=== PATIENT | male | born 1935 | race Caucasian/White ===

== ENCOUNTER → 2016-11-27 | Outpatient (CLI) | payer MEDICARE, BC ==
[~2016-11-27] MED LIST: ALBU8.5H3 INH; AMLO2.5T30 PO; ASPI-611; ATOR10TA20 PO; AZIT250T6 PO; BENZ100C97 PO; DORZ10DR12 BOTH EYES; FLUT16SP13 NS; LORA-326 PO; METF-200 PO; METH4TAB3 PO; MULT-543 PO; POLY17PO3 PO; VIT1CAPS47
[2016-11-27 10:12] LABS: BASOPHILS % (AUTO) 0.6 % (0-2); EOSINOPHILS # (AUTO) 0.2 T/MM3 (0-0.5); HCT - HEMATOCRIT 43.4 % (41-53); IMMATURE GRANULOCYTE # (AUTO) 0.02 T/MM3 (0.00-0.03); IMMATURE GRANULOCYTE % (AUTO) 0.3 % (0.0-0.5); LYMPHOCYTES # (AUTO) 1.2 T/MM3 (1-4.8); LYMPHOCYTES % (AUTO) 18.5 % (23-45); MEAN CORPUSCULAR HGB 28.6 UUG (26-34); MEAN CORPUSCULAR HGB CONC(MCHC 32.3 GM/DL (31-37); MEAN CORPUSCULAR VOLUME 88.8 UM3 (80-100); MEAN PLATELET VOLUME 11.2 UM3 (9.4-12.4); MONOCYTES # (AUTO) 0.6 T/MM3 (0-0.8); MONOCYTES % (AUTO) 9.1 % (0-9.0); NEUTROPHILS #(AUTO)-ABSOLUTE 4.6 T/MM3 (1.8-7.7); NEUTROPHILS % (AUTO) 68.5 % (33-66); RED BLOOD COUNT 4.89 M/MM3 (4.50-5.90); WBC - WHITE BLOOD COUNT 6.7 T/MM3 (4.5-11.0)
[2016-11-27 10:13] LABS: BLOOD, URINE 3+ (NEGATIVE); COLOR,URINE YELLOW (YELLOW); LEUKOCYTE ESTERASE ,URINE TRACE (NEGATIVE); NITRITE,URINE POSITIVE (NEGATIVE); UROBILINOGEN,URINE 0.2 EU/DL (NORMAL)
[2016-11-27 10:23] LABS: ALBUMIN 3.9 G/DL (3.5-5.0); ALBUMIN/GLOBULIN RATIO 1.3 RATIO (1.1-2.2); ALKALINE PHOSPHATASE 74 U/L (38-126); ALT (SGPT) 26 U/L (21-72); ANION GAP 11 MEQ/L (5-15); AST (SGOT) 23 U/L (17-59); BUN/CREATININE RATIO 19 RATIO (6-26); C-REACTIVE PROTEIN 6.1 MG/L (0-9); CALCIUM 9.1 MG/DL (8.4-10.2); CHLORIDE 104 MEQ/L (98-107); CO2 - CARBON DIOXIDE 29 MEQ/L (22-30); CREATININE 0.7 MG/DL (0.8-1.5); GLOMERULAR FILTRATION RATE 108; GLUCOSE 128 MG/DL (75-110); POTASSIUM 4.4 MEQ/L (3.6-5); SODIUM 144 MEQ/L (134-144)
[2016-11-27 10:33] LABS: BACTERIA,URINE 4+ (NEGATIVE); RBC,URINE 30-50 /HPF (0-3); SQUAMOUS EPITHELIAL CELL,UR NONE SEEN; TRANSITIONAL EPI CELLS,URINE 0-1 /HPF
--- NOTE | 2016-11-27 11:14 | DI ---
Indication: ITS.REASON: R31.9 HEMATURIA, UNSPECIFIED PROCEDURE: CT RENAL W/O CONTRAST: Encounter: Initial Comparison: None Technique: Axial CT images were performed through the abdomen and pelvis without intravenous contrast. Coronal and sagittal two-dimensional reformats. Automated Exposure Control and Iterative Reconstruction dose reducing techniques were utilized. Findings: Calcified granulomas in the right middle and right lower lobe. Heart is enlarged. Moderate hiatal hernia. The unenhanced contours of the liver are grossly normal. Gallbladder is surgically absent. The spleen, pancreas and adrenal glands are within normal limits. Simple appearing right renal cyst. 3 mm nonobstructing lower pole right renal stone. Left kidney is normal. Previously repaired abdominal aortic aneurysm with an aortoiliac stent graft. Calcifications at the renal artery origins bilaterally. Fat and small bowel containing left ventral hernia without evidence of obstruction. Right lower quadrant ileal conduit. Prior cystectomy. Multiple surgical clips in the pelvis. No free fluid or adenopathy. Bone windows show the hardware in the right iliac bone and degenerative change in the spine. Impression: Right nephrolithiasis. No ureteral stones seen. .
== END ==
LOC: IMA 09:51
PROVIDERS: ATTEND Internal Medicine
DX: R31.9 Hematuria, unspecified (principal); N20.0 Calculus of kidney; N12 Tubulo-interstitial nephritis, not specified as acute or chronic
CPT/HCPCS: 36415; 80053; 81001; 83605; 85025; 86140; 87077; 87086; 87186

== ENCOUNTER 2017-10-25 03:04 | Inpatient (IN) ==
[2017-10-25] MEDS ORDERED: SALINE FLUSH 10ml SYRINGE IVF PRN (03:09)
[2017-10-25] MEDS ORDERED: ALBUTEROL/IPRATROPIUM 2.5mg-0.5mg/3ml NEB AEROSOL ONE (03:09)
[2017-10-25] MEDS ORDERED: NS 1,000 ML IV ONE (03:10)
[2017-10-25] MEDS ORDERED: ACETAMINOPHEN 500 MG TABLET PO ONE (03:12)
--- OUTSIDE RECORDS SUMMARY | 2017-10-25 03:18 | External Medical Summary ---
:1935 Author Organization eClinicalWorks Care Team Providers Name Role Phone Reji Guillory Provider Role Unavailable Allergies No Known Allergies Problems Problem Type Condition Code Onset Dates Condition Status Problem Gastro-esophageal reflux disease K21.9 Active without esophagitis Problem Essential (primary) hypertension I10 Active Problem Allergic rhinitis, unspecified J30.9 Active Medications Medication Code System Code Instructions Start Date End Date Status Dosage Omeprazole [facility] 28319-770 20 MG Orally Once 1 capsule 1-01 a day Results No Known Results Summary Purpose eClinicalWorks Submission
--- NOTE | 2017-10-25 03:31 | Emergency Department Report ---
General Adult HPI - General Stated complaint: weakness Time Seen by Provider: 10/25/17 03:08 Source: patient, EMS Mode of arrival: EMS Limitations: altered mental status - History of Present Illness HPI narrative: Patient has several day history of feeling "ill," and finally when he became severely weak tonight, his initiated EMS transport for evaluation of generalized weakness. Once the patient was in the ER, he was found to have fever , and confirmed decreased O2 saturations on room air by EMS and in the ER. O2 saturations were 89-90% on room air, patient is not sure if he has any shortness of breath. - Related Data Home Medications Medication Instructions Recorded Confirmed Fluticasone Propionate 2 spray NS DAILY #0 08/17/09 Loratadine (Claritin) 10 mg PO DAILY PRN #0 08/17/09 Multivitamins (Multiple Vitamin) 1 tab PO DAILY #0 08/17/09 Aspirin DAILY #0 12/18/10 Amlodipine Besylate [Norvasc] 2.5 mg PO DAILY #0 01/10/11 Metformin HCl 500 mg PO HS #0 12/07/12 Atorvastatin Calcium [Lipitor] 10 mg PO DAILY #0 09/12/13 Polyethylene Glycol 3350 [Miralax] 17 gm PO DAILY #0 pwd 01/07/14 Dorzolamide HCl 1 drop BOTH EYES BID #0 drop 11/20/14 Vit C/E/Zn/Coppr/Lutein/Zeaxan DAILY #0 11/20/14 [Preservision Areds 2 Softgel] Previous Rx's Medication Instructions Recorded Albuterol Sulfate (Albuterol 2 puff INH Q4-6H PRN #1 inhaler 11/20/14 Sulfate Hfa) Azithromycin 1 tab PO DAILY 5 Days #0 tab 11/20/14 Benzonatate [Tessalon Perle] 100 mg PO Q8H #20 cap 11/20/14 methylPREDNISolone [Medrol] 4 mg PO DIRECTED #1 11/20/14 Allergies Allergy/AdvReac Type Severity Reaction Status Date / Time lisinopril Allergy Unknown AIRWAY Verified 10/25/17 03:26 OBSTRUCTION naproxen sodium AdvReac Severe BLOODY Uncoded 10/25/17 03:26 STOOLS hydrocodone bit AdvReac Intermediate NEUROLOGICAL Uncoded 10/25/17 03:26 CHANGES Review of Systems All systems: reviewed and negative except as stated PFSH Colon cancer, hypertension, hypercholesterolemia allergies aortic aneurysm GERD BPH Surgical History: Partial colon resection with colostomy. Bladder resection with ileal urostomy. appendix,. gallbladder,. hernia,. colonoscopy,. EGD,. aneurysm repair. prostatectomy. knee Physical Exam - Limitations Limitations: altered mental status - General General appearance: alert, other (patient appears significantly hard of hearing , but also moderately confused) - Normal Exams: Head:: Normocephalic without trauma Eyes:: Pupils are PERRLA w/ EOMI, No scleral icterus, irritation, or foreign bodies noted ENMT:: No facial trauma, nasal exudates, pharyngeal erythema, or exudates are noted Neck:: Full range of motion, without adenopathy, JVD, bruits or thyromegaly Cardiovascular:: Regular rate and rhythm, without murmur or gallop, Pulses 2+ all extremities, capillary refill, <2 seconds all extremities Abdomen:: Bowel sounds positive, soft, non-tender, non-distended, no hepatosplenomegaly, masses or bruits noted Lymphatic:: No lymphadenopathy, or lymphedema noted Musculoskeletal:: No tenderness, or deformity noted, good range of motion, all extremities Integumentary:: No rashes, hives, or bruising noted, hair and nails, without abnormality Neurological:: Patient is alert, and oriented, cranial nerves, motor/sensory/ cerebellar, exams w/o gross deficits, to observation Psychiatric:: Patient exhibits, appropriate attention, emotion and affect - Chest Chest inspection: Present: normal inspection, symmetric chest wall rise. Absent : tenderness - Respiratory Respiratory exam: Present: wheezes. Absent: normal lung sounds bilaterally ( course rhonchi and mild wheezes bilaterally, mild), respiratory distress, accessory muscle use, prolonged expiratory phase Course Vital Signs Temperature 101 F H 10/25/17 03:05 Pulse Rate 89 10/25/17 03:05 Respiratory Rate 24 10/25/17 03:05 Blood Pressure 168/79 H 10/25/17 03:05 Pulse Oximetry 89 L 10/25/17 03:05 Temperature 101 F H 10/25/17 03:05 Pulse Rate 80 10/25/17 04:16 Respiratory Rate 20 10/25/17 04:16 Blood Pressure 146/88 H 10/25/17 04:16 Pulse Oximetry 97 10/25/17 04:16 Medical Decision Making - MDM Narrative Medical decision making narrative: Patient is maintained on 2 L nasal cannula with good oxygenation He is given 1 L normal saline bolus and DuoNeb 1 CBC - n CMP- n Lactate - n Influenza negative UA - CXR - no focal consolidations are seen, mild unchanged infiltrates from prior exams are seen. Age-appropriate change. Does not appear to be chronic lung disease. Patient is feeling somewhat better after normal saline bolus and DuoNeb 1, however we are unable to wean the patient off his oxygen without recurrence of his hypoxemia down to 89% on room air. Patient also persists with profound weakness, and his is unable to care for him in this state at home. - Lab Data Result diagrams: 10/25/17 03:21 10/25/17 03:21 Lab Results 10/25/17 10/25/17 10/25/17 Range/Units 03:21 03:21 03:30 WBC 10.6 (4.5-11.0) T/MM3 RBC 4.77 (4.50-5.90) M/MM3 Hgb 14.0 (13.5-17.5) GM/DL Hct 42.5 (41-53) % MCV 89.1 (80-100) UM3 MCH 29.4 (26-34) UUG MCHC 32.9 (31-37) GM/DL RDW Std Deviation 44.6 (36.9-50.2) FL Plt Count 147 (130-400) T/MM3 MPV 11.4 (9.4-12.4) UM3 Immature Gran % (Auto) Not performed Neut % (Auto) Not performed Lymph % (Auto) Not performed Barren % (Auto) Not performed Eos % (Auto) Not performed Baso % (Auto) Not performed Neut # (Auto) Not performed Lymph # (Auto) Not performed Barren # (Auto) Not performed Eos # (Auto) Not performed Baso # (Auto) Not performed Abs Immat Gran (auto) Not performed Neutrophils % (Manual) 89.0 H (33-66) % Band Neutrophils % 4.0 (0-6) % Lymphocytes % (Manual) 4.0 L (23-45) % Monocytes % (Manual) 3.0 (0-9.0) % Neutrophils # (Manual) 9.4 H (1.8-7.7) T/MM3 Band Neutrophils # 0.4 T/MM3 Lymphocytes # (Manual) 0.4 L (1-4.8) T/MM3 Monocytes # (Manual) 0.3 (0-0.8) T/MM3 RBC Morph Comment Normal Turbidity < 20 (0-20) Sodium 142 (134-144) MEQ/L Potassium 3.7 (3.6-5) MEQ/L Chloride 104 (98-107) MEQ/L Carbon Dioxide 25 (22-30) MEQ/L Anion Gap 13 (5-15) MEQ/L BUN 17.0 (9-20) MG/DL Creatinine 0.7 L (0.8-1.5) MG/DL GFR Calculation 107 BUN/Creatinine Ratio 24 (6-26) RATIO Glucose 213 H (75-110) MG/DL Calculated Osmolality 281 H (261-280) MOSM/KG Calcium 8.7 (8.4-10.2) MG/DL Total Bilirubin 0.30 (0.20-1.30) MG/DL Conjugated Bilirubin 0.00 (0.00-0.30) MG/DL Unconjugated Bilirubin 0.00 (0.00-1.1) MG/DL Icterus Index < 2 (0-7) AST 26 (17-59) U/L ALT 31 (21-72) U/L Alkaline Phosphatase 87 (38-126) U/L Total Protein 7.3 (6.3-8.2) G/DL Albumin 4.0 (3.5-5.0) G/DL Globulin 3.3 (2.4-3.6) G/DL Albumin/Globulin Ratio 1.2 (1.1-2.2) RATIO Plasma Lactate 1.6 (0.6-2.2) MMOL/L Specimen Hemolysis < 15 (0-25) Influenza Type A (PCR) Negative (Negative) Influenza Type B (PCR) Negative (Negative) Disposition Clinical Impression: Febrile illness, Hypoxemia Disposition: 02 To [facility] Acute Care Condition: Improved Prescriptions: No Action Fluticasone Propionate 2 spray NS DAILY #0 Multivitamins (Multiple Vitamin) 1 tab PO DAILY #0 Aspirin DAILY #0 Metformin HCl 500 mg PO HS #0 Atorvastatin Calcium [Lipitor] 10 mg PO DAILY #0 Polyethylene Glycol 3350 [Miralax] 17 gm PO DAILY #0 pwd Vit C/E/Zn/Coppr/Lutein/Zeaxan [Preservision Areds 2 Softgel] DAILY #0 Albuterol Sulfate (Albuterol Sulfate Hfa) 2 puff INH Q4-6H PRN #1 inhaler PRN Reason: COUGH Loratadine (Claritin) 10 mg PO DAILY PRN #0 PRN Reason: PRN ORDERS Amlodipine Besylate [Norvasc] 2.5 mg PO DAILY #0 Dorzolamide HCl 1 drop BOTH EYES BID #0 drop Azithromycin 1 tab PO DAILY 5 Days #0 tab methylPREDNISolone [Medrol] 4 mg PO DIRECTED #1 Benzonatate [Tessalon Perle] 100 mg PO Q8H #20 cap Referrals: Didier Powell Jr., MD [Physician] - Reji Guillory DO [Family Provider] - Roosevelt Sanders MD [Physician] - - Seen By: physician
[2017-10-25] MEDS ORDERED: AZITHROMYCIN IV 500 MG in NS 250ml 250 ML IV ONE (04:36)
[2017-10-25] MEDS ORDERED: CEFTRIAXONE (ER USE ONLY) 1 GM in NS 100 ML IV ONE (04:36)
[2017-10-25] MEDS ORDERED: ONDANSETRON 4 MG/2 ML INJECTION IVP PRN (04:49)
[2017-10-25] MEDS ORDERED: CEFTRIAXONE (ER USE ONLY) 1 GM in NS 100 ML IV SCH (04:49)
[2017-10-25] MEDS ORDERED: HYDROCODONE/APAP 5mg/325mg TABLET PO PRN (04:49)
[2017-10-25] MEDS ORDERED: DOCUSATE SODIUM 100 MG CAPSULE PO PRN (04:49)
[2017-10-25] MEDS ORDERED: MORPHINE SULFATE 4mg INJECTION IVP PRN (04:49)
[2017-10-25] MEDS ORDERED: ACETAMINOPHEN 325 MG TABLET PO PRN (04:49)
[2017-10-25 05:39] VITALS: BMI 26.0
[2017-10-25] MEDS: NS 1,000 ML IV SCH ×2 (05:58→17:57)
[2017-10-25] MEDS: ENOXAPARIN 40 MG/0.4 ML INJECTION SQ SCH (06:09)
[2017-10-25] MEDS: AZITHROMYCIN IV 500 MG in NS 250ml 250 ML IV SCH (06:11)
--- NOTE | 2017-10-25 06:25 | History & Physical Report ---
History of Present Illness Date: 10/25/17 Chief complaint: weakness HPI: This is a 82 y/o male with a previous history of colon and bladder cancer with a urostomy and colostomy. The pateint has a hsitory of recurrent UTI. The patient has been experiencing resp symptoms for the past week. with a cough. He has had low grade fevers with chills and sweats. Tonight the patient's weakness worsened and he was brought to the ED for evaluation. The patient had a 101 temperature. CXR without obvious infiltrate. mild hypoxia. At this time he is to be admitted for further managment of his underlying infectious process. No headaches, no sore throat, mild congestion, no neck pain, no chest pain. cough ? productive. no abdomen pain, decreased po intake past 2 days. no emesis. OUtput from ostomy no change, no blood. no focal motor weakness. Patient is very [place] and as such information obtained from who is a very reliable source. Review of Systems All systems PM: 10-point ROS was reviewed, no additional remarkable complaints except Past Medical History Patient Stated Medical History Other HEENT Yes: SINUS SURGERY Hypertension Yes Diabetes Mellitus Type 2 Yes Other GI Yes: COLON CANCER Hx Urinary Tract Infection Yes Surgical History: Partial colon resection with colostomy. Bladder resection with ileal urostomy. appendix,. gallbladder,. hernia,. colonoscopy,. EGD,. aneurysm repair. prostatectomy. knee Family History Updates: as stated above. non contribuatory at this age - Social History Smoking status: Never smoker Medications Home Medications Medication Instructions Recorded Confirmed Type Fluticasone Propionate 2 spray NS DAILY #0 08/17/09 10/25/17 History Loratadine (Claritin) 10 mg PO DAILY PRN #0 08/17/09 10/25/17 History Multivitamins (Multiple Vitamin) 1 tab PO DAILY #0 08/17/09 10/25/17 History Aspirin 81 mg PO DAILY #0 12/18/10 10/25/17 History Amlodipine Besylate [Norvasc] 2.5 mg PO DAILY #0 01/10/11 10/25/17 History Metformin HCl 500 mg PO HS #0 12/07/12 10/25/17 History Atorvastatin Calcium [Lipitor] 10 mg PO DAILY #0 09/12/13 10/25/17 History Polyethylene Glycol 3350 [Miralax] 17 gm PO DAILY #0 pwd 05/08/14 02/23/18 History Dorzolamide HCl 1 drop BOTH EYES BID #0 drop 11/20/14 10/25/17 History Vit C/E/Zn/Coppr/Lutein/Zeaxan 1 cap DAILY #0 11/20/14 10/25/17 History [Preservision Areds 2 Softgel] Losartan Potassium 25 mg PO DAILY 10/25/17 10/25/17 History Omeprazole 20 mg BID 10/25/17 10/25/17 History Allergies Allergy/AdvReac Type Severity Reaction Status Date / Time lisinopril Allergy Unknown AIRWAY Verified 10/25/17 05:54 OBSTRUCTION naproxen sodium AdvReac Severe BLOODY Uncoded 10/25/17 05:54 STOOLS hydrocodone bit AdvReac Intermediate NEUROLOGICAL Uncoded 10/25/17 05:54 CHANGES Exam Vital Signs: Temperature 97.3 F 10/25/17 05:53 Pulse Rate 69 10/25/17 05:53 Respiratory Rate 20 10/25/17 05:53 Blood Pressure 117/65 10/25/17 05:53 Pulse Oximetry 93 10/25/17 05:53 Height/Weight/BMI: Height 1.83 m Weight 87.1 kg Body Mass Index 26.0 - Constitutional Present: mild distress, average body habitus, cooperative - Routine HEENT Exam Head: Present: normocephalic, atraumatic Eye: Present: EOMI, conjunctivae pink. Absent: scleral injection ENT: Present: mucous membranes dry - Routine Neck Exam Present: supple - Routine Respiratory Exam Present: decreased breath sounds, CTA bilaterally - Routine Cardiovascular Exam Present: RRR Comments: 3 to 4 / 6 JESSICA - Routine Abdominal Exam Present: soft, normoactive bowel sounds, non distended, ostomy - Routine Extremities Exam Present: no edema, non tender, full ROM, pulses intact - Routine Back/Spine/Pelvis Exam Back/Spine: Present: full ROM - Routine Skin Exam Present: intact, dry - Routine Neurological Exam Present: alert, oriented X3, normal tone. Absent: motor deficit, altered mental status - Routine Psychiatric Exam Present: normal affect Results - Labs CBC & Chem 7: 10/25/17 03:21 10/25/17 03:21 Labs: labs reviewed. LA normal. CXR without acute infiltrate UA pending but visually looked not normal. Assessment and Plan (1) Sepsis Current visit: Yes Status: Acute (2) UTI (urinary tract infection) Current visit: Yes Status: Acute (3) Upper respiratory infection Current visit: Yes Status: Acute (4) Hypoxemia Current visit: Yes Status: Acute (5) Hard of hearing Current visit: Yes Status: Acute (6) DM type 2 (diabetes mellitus, type 2) Current visit: Yes Status: Acute (7) Influenza A Current visit: Yes Status: Acute Assessment and Plan: 1. upper respiratory infection acute POA: patient is febrile, progressive weakness. CXR no consistent with infiltrate. could be dry and not clearly demonstrated. influenza a and b neg. This patient acts like influenza. Will check resp panel which will check pcr influenza. will cover with rocephin/ zithromax to start with. reassess after initial treatment 2. UTI acute POA: no way to confirm if truly acute vs chronic. Rocephin to start with. cx will be sent 3. sepsis acute POA: will tx with ivf and repeat markers in am 4. DM2 chronic POA: correctional plan 5. HTN chronic POA: hold antihypertensive meds to start with, adjust as indicated 6. DVT ppx; SCD, lovenox 7. S/p colon and bladder cancer with urostomy and colostomy. CT recently demonstrated no recurrence. to be aware of CATHERINE Assessment Sepsis syndrome (SIRS: Temp 101, RR 24, Hypoxia) - source urine/Influenza Influenza type A UTI Hypoxia Anorexia secondary to acute illness Acute weakness Type II DM HTN HDL Seasonal allergies GERD OA Hx Colon and bladder CA DVT Prophylaxis: SCD's, Lovenox Resuscitation Status: Full Code - Time spent with patient Time with patient PN: 30 minutes - Physician Narrative Physician: Star Finnegan MD Narrative: Date: 10/25/17 Time: 1120 Have independently interviewed and examined pt. Chart reviewed. Reviewed above note and concur. CC: Weakness, increasing cough/congestion. HPI: 82 y/o male presents to [facility] ED via EMS secondary to increasing weakness. Started with cough and congestion on 10/23. Cough productive of thick sputum. Hard to sleep and night due to increasing cough and phlegm. More SOA and congested. Appetite decreasing. Evening of 10/24, not able to finish his dinner secondary to nausea-tried to have emesis, but couldn't. Having F/C/Sweats. Progressively more weak-not able to get up so EMS activated and pt taken to ED. Temp elevated to 101. Respiratory rate rapid. UA concerning for UTI. Influenza A positive. Hypoxic on RA - 89% saturation. PMHx: Type II DM, HTN, HDL, OA, GERD, Seasonal Allergies, Anxiety, Hx Colon and bladder Ca, Macular degeneration PsxHx: Vandana fundoplication, Partial colon resection with colostomy, Bladder resection with ileal urostomy, Appy, Lesli, Hernia Sx, Prostatectomy, Power Port All: lisinopril, Naproxen, Hydrocodone. MEDS: see MAR SHx: to of 60 years, lives independently. Quit smoke in 60's. Kahlil PCP. FHx: Father-CHF, stroke. Mother-DM. 2 sisters had CA Brother with HTN ROS: as in HPI. 10 point ROS discusses with pt and neg except for: increased sinus congestion, Neck and arm pain for past months. EXAM GEN: WDWNWM A&O Looks tired and weak. HEENT: NC/AT PERRLA EOMI MMM NECK: supple, midline, no tracheal deviation LUNGS: Decreased breath sounds bilaterally. Upper airway noises. Frequent cough. CV: regular rate and rhythm AB: soft nt/nd +BS EXT: no C/C/E. Radial pulses intact. SKIN: warm and moist. No rashes Neuro: CN II-XII intact. No focal motor deficits PSYCH: awake alert appropriate. Thoughts linear MS: normal muscle mass and tone of upper and lower ext. Assessment Sepsis syndrome (SIRS: Temp 101, RR 24, Hypoxia) - source urine/Influenza Influenza type A UTI Hypoxia Anorexia secondary to acute illness Acute weakness Type II DM HTN HDL Seasonal allergies GERD OA Hx Colon and bladder CA Plan Place patient in inpatient admission at [facility] for treatment of sepsis syndrome secondary to UTI and influenza. Anticipate greater than 2 midnights of care needed. Rocephin and azithromycin to cover urinary/pulmonary pathogens. Tamiflu initiated for influenza, but pt and family declining secondary to potential side effects. Will discontinue. IVF for hydration. Supplemental O2 to maintain saturations. Mucinex DM and Acapella to help decrease secretion. Will hold antihypertensive initially to decrease risk for hypotension due to sepsis. Monitor blood counts and BMP due to sepsis and medication use. Will need PT/OT to help improve functional status once acute symptoms defervesce. SCD for DVT prevention. Discussed code status with patient and his . Currently wishes full code, but are in process of thinking about DNR. Care to return to Dr Guillory at time of discharge from [facility]. Hospital Course Summary Disclaimer: The visit summary below is not to be considered part of the above Progress Note. Hospital Course: 10/25/[address] patient in inpatient admission at [facility] for treatment of sepsis syndrome secondary to UTI and influenza. Anticipate greater than 2 midnights of care needed. Rocephin and azithromycin to cover urinary/pulmonary pathogens. Tamiflu initiated for influenza, but pt and family declining secondary to potential side effects. Will discontinue. IVF for hydration. Supplemental O2 to maintain saturations. Mucinex DM and Acapella to help decrease secretion. Will hold antihypertensive initially to decrease risk for hypotension due to sepsis. Monitor blood counts and BMP due to sepsis and medication use. Will need PT/OT to help improve functional status once acute symptoms defervesce. SCD for DVT prevention. Discussed code status with patient and his . Currently wishes full code, but are in process of thinking about DNR. Care to return to Dr Guillory at time of discharge from [facility].
--- NOTE | 2017-10-25 08:03 | XRay Report ---
INDICATION: cough, hypoxemia PROCEDURE: CHEST 2-VIEWS UPRIGHT (PA & LAT) Encounter: Initial COMPARISON: Chest CT dated October 03, 2017. FINDINGS: The lungs are clear without evidence of focal abnormal airspace opacity. There is no pleural effusion or pneumothorax. Right IJ port The heart size, mediastinal contours and pulmonary vascularity are stable. IMPRESSION: No acute cardiopulmonary disease. .
[2017-10-25] MEDS ORDERED: LORATADINE 10 MG TABLET PO PRN (11:47)
[2017-10-25] MEDS: SALINE 0.65% NASAL SPRAY 44 ML BOTTLE EA NOSTRIL SCH ×3 (13:58→20:47)
[2017-10-25] MEDS: GUAIFENESIN/D-METHORPHAN 600mg/30mg TABLET PO SCH ×2 (14:01→20:46)
[2017-10-25] MEDS: OMEPRAZOLE 20 MG CAPSULE PO SCH (16:26)
[2017-10-25] MEDS: DORZOLAMIDE 2% EYE DROPS 10ml RIGHT EYE SCH (20:47)
[2017-10-26] MEDS: NS 1,000 ML IV SCH ×3 (04:12→18:31)
[2017-10-26] MEDS: AZITHROMYCIN IV 500 MG in NS 250ml 250 ML IV SCH (05:24)
[2017-10-26] MEDS: ENOXAPARIN 40 MG/0.4 ML INJECTION SQ SCH (05:25)
[2017-10-26] MEDS: OMEPRAZOLE 20 MG CAPSULE PO SCH ×2 (05:31→17:38)
[2017-10-26] MEDS: NS IV SCH (06:59)
[2017-10-26] MEDS: CEFTRIAXONE IV SCH (06:59)
[2017-10-26] MEDS: SALINE 0.65% NASAL SPRAY 44 ML BOTTLE EA NOSTRIL SCH ×4 (09:57→20:38)
[2017-10-26] MEDS: FLUTICASONE NASAL SPRAY 50mcg EA NOSTRIL SCH (09:58)
[2017-10-26] MEDS: POLYETHYL GLYCOL 3350 17gm PACKET PO SCH (09:58)
[2017-10-26] MEDS: ATORVASTATIN 10 MG TABLET PO SCH (09:58)
[2017-10-26] MEDS: GUAIFENESIN/D-METHORPHAN 600mg/30mg TABLET PO SCH ×2 (09:58→20:38)
[2017-10-26] MEDS: ASPIRIN 81 MG CHEWABLE TABLET PO SCH (09:58)
[2017-10-26] MEDS: DORZOLAMIDE 2% EYE DROPS 10ml RIGHT EYE SCH ×2 (09:59→20:37)
--- NOTE | 2017-10-26 13:26 | Progress Note ---
- Date 10/26/17 Subjective: F/U: Sepsis syndrome, Influenza type A, UTI, Hypoxia Doing fair. Still very weak and tired. No appetite-not feeling hungry or wanting to eat. Not having nausea or ab pain. Denies feeling bloated to ab. [place] like needed to pass stool, but not able. Hiccups are very bothersome. Breathing about the same-notes cough but not producing sputum. Chest wall sore with cough. No chest pressure or palpitations. Objective Vital signs: Temperature 96.5 F L 10/26/17 07:36 Pulse Rate 122 H 10/26/17 08:00 Respiratory Rate 18 10/26/17 07:36 Blood Pressure 155/74 H 10/26/17 07:36 Pulse Oximetry 92 10/26/17 07:36 Height/Weight/BMI: Height 1.83 m Weight 87.2 kg Body Mass Index 26.0 - Constitutional Present: well nourished, well developed, average body habitus, cooperative - Routine HEENT Exam Head: Present: normocephalic, atraumatic Eye: Present: EOMI, PERRL ENT: Present: mucous membranes moist - Routine Respiratory Exam Present: decreased breath sounds, distant breath sounds, diminished air movement. Absent: respiratory distress - Routine Cardiovascular Exam Present: irregular rhythm - Routine Abdominal Exam Present: soft, non distended, non tender. Absent: normoactive bowel sounds ( Decreased) - Routine Extremities Exam Present: no edema, pulses intact. Absent: cyanosis, clubbing - Routine Musculoskeletal Exam Musculoskeletal: Present: no clubbing or cyanosis - Routine Skin Exam Present: dry, warm - Routine Neurological Exam Present: alert, oriented X3, CN II-XII intact, moving all extremities, vision grossly intact, hearing grossly intact, normal speech. Absent: motor deficit, altered mental status - Routine Psychiatric Exam Present: normal affect, normal thought process, cooperative Results - Labs CBC & Chem 7: 10/26/17 05:52 10/26/17 05:52 Assessment and Plan (1) Sepsis Current visit: Yes Status: Acute (2) UTI (urinary tract infection) Current visit: Yes Status: Acute (3) Upper respiratory infection Current visit: Yes Status: Acute (4) Hypoxemia Current visit: Yes Status: Acute (5) Hard of hearing Current visit: Yes Status: Acute (6) DM type 2 (diabetes mellitus, type 2) Current visit: Yes Status: Acute (7) Influenza A Current visit: Yes Status: Acute Assessment and Plan: Assessment Sepsis syndrome (SIRS: Temp 101, RR 24, Hypoxia) - source urine/Influenza Influenza type A UTI - Ecoli Hypoxia Anorexia secondary to acute illness Acute weakness Hiccups Hypokalemia (Not POA) Type II DM HTN HDL Seasonal allergies GERD OA Hx Colon and bladder CA Plan Continue with Rocephin for urinary coverage; E coli growing - sensitivities pending. Can discontinue Azithromycin. Decreased IVF to 75cc/hr - oral drive still diminish. Sugars stable; will continue to hold metformin due to decreased oral drive. Give 20mEq potassium orally due to hypokalemia. Thorazine prn hiccups Tele showing tachycardiac and cardiac irregularity. Check EKG. Will start Metoprolol succinate 25mg BIDWM. BP increasing - can restart Norvasc and losartan. PT/OT working with patient to help improve strength. Will recheck BMP in am due to hypokalemia and medication use. Will recheck CBC in am due to resolving sepsis syndrome. Case discussed with CM and family. Time spent with patient care 25 minutes. DVT Prophylaxis: SCD's, Lovenox Resuscitation Status: Full Code - Time spent with patient Time with patient PN: 25 minutes - Physician Narrative Physician: Star Finnegan MD Narrative: Date: 10/26/17 Time: 1323 Hospital Course Summary Disclaimer: The visit summary below is not to be considered part of the above Progress Note. Hospital Course: 10/25/[address] [place] [facility] of [place] syndrome secondary to UTI and influenza. Anticipate greater than 2 midnights of care needed. Rocephin and azithromycin to cover urinary/pulmonary pathogens. Tamiflu initiated for influenza, but pt and family declining secondary to potential side effects. Will discontinue. IVF for hydration - NS at 100cc/hr. Supplemental O2 to maintain saturations. Mucinex DM and Acapella to help decrease secretion. Will hold antihypertensive initially to decrease risk for hypotension due to sepsis. Monitor blood counts and BMP due to sepsis and medication use. Will need PT/OT to help improve functional status once acute symptoms defervesce. SCD and Lovenox for DVT prevention. Discussed code status with patient and his . Currently wishes full code, but are in process of thinking about DNR. Care to return to Dr Guillory at time of discharge from [facility] 10/26/17 Continue with Rocephin for urinary coverage; E coli growing - sensitivities pending. Can discontinue Azithromycin. Decreased IVF to 75cc/hr - oral drive still diminish. Sugars stable; will continue to hold metformin due to decreased oral drive. Give 20mEq potassium orally due to hypokalemia. Thorazine prn hiccups Tele showing tachycardiac and cardiac irregularity. Check EKG. Will start Metoprolol succinate 25mg BIDWM. BP increasing - can restart Norvasc and losartan. PT/OT working with patient to help improve strength.
[2017-10-26] MEDS: ChlorproMAZINE INJ 25 MG in NS 50 ML IV PRN (14:13)
[2017-10-27] MEDS: CEFTRIAXONE IV SCH (05:36)
[2017-10-27] MEDS: OMEPRAZOLE 20 MG CAPSULE PO SCH ×2 (05:36→18:04)
[2017-10-27] MEDS: ENOXAPARIN 40 MG/0.4 ML INJECTION SQ SCH (05:36)
[2017-10-27] MEDS: NS IV SCH (05:36)
[2017-10-27] MEDS: NS 1,000 ML IV SCH ×3 (05:36→21:38)
[2017-10-27] MEDS: SALINE 0.65% NASAL SPRAY 44 ML BOTTLE EA NOSTRIL SCH ×4 (09:06→22:54)
[2017-10-27] MEDS: FLUTICASONE NASAL SPRAY 50mcg EA NOSTRIL SCH (09:06)
[2017-10-27] MEDS: POLYETHYL GLYCOL 3350 17gm PACKET PO SCH (09:07)
[2017-10-27] MEDS: ATORVASTATIN 10 MG TABLET PO SCH (09:07)
[2017-10-27] MEDS: LOSARTAN 50 MG TABLET PO SCH (09:07)
[2017-10-27] MEDS: AMLODIPINE 2.5 MG TABLET PO SCH (09:07)
[2017-10-27] MEDS: GUAIFENESIN/D-METHORPHAN 600mg/30mg TABLET PO SCH ×2 (09:07→20:19)
[2017-10-27] MEDS: ASPIRIN 81 MG CHEWABLE TABLET PO SCH (09:07)
[2017-10-27] MEDS: DORZOLAMIDE 2% EYE DROPS 10ml RIGHT EYE SCH ×2 (09:08→20:20)
[2017-10-27] MEDS ORDERED: FALL RISK - PHARMACY CONSULT XX ONE (09:32)
[2017-10-27] MEDS: ChlorproMAZINE INJ 25 MG in NS 50 ML IV PRN ×2 (10:23→18:53)
--- NOTE | 2017-10-27 13:34 | Progress Note ---
- Date 10/27/17 Subjective: Deangelo is seen today in follow up. He is up in the chair watching basketball. He states that overall he is feeling good and improved. He is breathing on room air without distress. Telemetry revels that he converted back to sinus rhythm this morning. He denies having pain or feeling short of breath. States he is "ready to go home and get some freedom". Objective Vital signs: Temperature 97.8 F 10/27/17 07:54 Pulse Rate 74 10/27/17 08:38 Respiratory Rate 16 10/27/17 07:54 Blood Pressure 139/80 10/27/17 07:54 Pulse Oximetry 94 10/27/17 07:54 Rhythm: Normal Sinus Rhythm Height/Weight/BMI: Height 1.83 m Weight 86.9 kg Body Mass Index 26.0 - Constitutional Present: no acute distress, well nourished, well developed - Routine HEENT Exam Eye: Present: EOMI ENT: Present: mucous membranes moist, dentition normal - Routine Respiratory Exam Present: CTA bilaterally. Absent: wheezes - Routine Cardiovascular Exam Present: RRR, S1, S2. Absent: murmur - Routine Abdominal Exam Present: soft, normoactive bowel sounds, non distended. Absent: tenderness - Routine Extremities Exam Present: full ROM, normal capillary refill - Routine Skin Exam Present: dry, warm - Routine Neurological Exam Present: alert, oriented X3, CN II-XII intact, moving all extremities - Routine Lymphatic Exam Lymphatic: Absent: adenopathy - Routine Psychiatric Exam Present: normal affect, cooperative Results - Labs CBC & Chem 7: 10/27/17 03:54 10/27/17 03:54 Assessment and Plan (1) Sepsis Current visit: Yes Status: Acute (2) UTI (urinary tract infection) Current visit: Yes Status: Acute (3) Upper respiratory infection Current visit: Yes Status: Acute (4) Influenza A Current visit: Yes Status: Acute (5) Hypoxemia Current visit: Yes Status: Acute (6) Hard of hearing Current visit: Yes Status: Acute (7) DM type 2 (diabetes mellitus, type 2) Current visit: Yes Status: Acute Assessment and Plan: Assessment Sepsis syndrome (SIRS: Temp 101, RR 24, Hypoxia) - source urine/Influenza Influenza type A UTI - Ecoli Hypoxia Anorexia secondary to acute illness Acute weakness Hiccups Hypokalemia (Not POA) Type II DM HTN HDL Seasonal allergies GERD OA Hx Colon and bladder CA Plan Continue with Rocephin for urinary coverage; E coli growing - sensitive to Rocephin. Overall feeling better and is currently on room air. Continue to Monitor blood sugars. As oral drive improves can resume home metformin. Mild hypokalemia- oral potassium supplementation. Will consult for PT/OT for tomorrow to evaluate strengthening. Case discussed with attending, Dr Finnegan. DVT Prophylaxis: SCD's Resuscitation Status: Full Code - Time spent with patient Time with patient PN: 25 minutes - Physician Narrative Physician: Star Finnegan MD Narrative: Date: 10/27/17 Time: 1412 Have independently interviewed and examined pt. Chart reviewed. Case discussed with my SECONDARY SCHOOL TEACHER LIBRARIAN. Care plan developed with my supervision; agree with above. Feeling better. Appetite increasing-eating better. No nausea or ab pain. Breathing okay-some cough but not mobilizing sputum. Strength making improvement. No chest pressure or pain. Lungs: decreased, no distress CV: regular AB: soft nt/nd MSE: awake alert appropriate Plan: Continue with Rocephin-Ecoli sensitive. Will stop IVF and monitor patient response without fluid support. Encourage ambulation. Getting closer to discharge - will need to see how patient does with therapy to help determine if strong enough for home or needing skilled at discharge. Hospital Course Summary Disclaimer: The visit summary below is not to be considered part of the above Progress Note. Hospital Course: 10/25/[address] patient [place] [facility] of sepsis syndrome secondary to UTI and influenza. Anticipate greater than 2 midnights of care needed. Rocephin and azithromycin to cover urinary/pulmonary pathogens. Tamiflu initiated for influenza, but pt and family declining secondary to potential side effects. Will discontinue. IVF for hydration - NS at 100cc/hr. Supplemental O2 to maintain saturations. Mucinex DM and Acapella to help decrease secretion. Will hold antihypertensive initially to decrease risk for hypotension due to sepsis. Monitor blood counts and BMP due to sepsis and medication use. Will need PT/OT to help improve functional status once acute symptoms defervesce. SCD and Lovenox for DVT prevention. Discussed code status with patient and his . Currently wishes full code, but are in process of thinking about DNR. Care to return to Dr Nedich at time of discharge from [facility]. 10/26/17 Continue with Rocephin for urinary coverage; E coli growing - sensitivities pending. Can discontinue Azithromycin. Decreased IVF to 75cc/hr - oral drive still diminish. Sugars stable; will continue to hold metformin due to decreased oral drive. Give 20mEq potassium orally due to hypokalemia. Thorazine prn hiccups Tele showing tachycardiac and cardiac irregularity. Check EKG. Will start Metoprolol succinate 25mg BIDWM. BP increasing - can restart Norvasc and losartan. PT/OT working with patient to help improve strength. 10/27/17 Continue with Rocephin for urinary coverage; E coli growing - sensitive to Rocephin. Overall feeling better and is currently on room air. Appetite increasing. Will stop IVF and monitor his response off of fluid support. Continue to Monitor blood sugars. As oral drive improves can resume home metformin. Mild hypokalemia- oral potassium supplementation. Encourage therapy and activities to help strength and functional status. Possible need for skilled care at discharge.
[2017-10-27 23:31] VITALS: RESP 18
[2017-10-28] MEDS: OMEPRAZOLE 20 MG CAPSULE PO SCH (05:56)
[2017-10-28] MEDS: ENOXAPARIN 40 MG/0.4 ML INJECTION SQ SCH (05:56)
[2017-10-28] MEDS: CEFTRIAXONE IV SCH (05:57)
[2017-10-28] MEDS: NS IV SCH (05:57)
[2017-10-28] MEDS: NS 1,000 ML IV SCH (06:30)
[2017-10-28 08:00] VITALS: BP 127/69; TEMP 98.4; O2SAT 92
[2017-10-28] MEDS: FLUTICASONE NASAL SPRAY 50mcg EA NOSTRIL SCH (08:29)
[2017-10-28] MEDS: SALINE 0.65% NASAL SPRAY 44 ML BOTTLE EA NOSTRIL SCH ×2 (08:29→12:19)
[2017-10-28] MEDS: DORZOLAMIDE 2% EYE DROPS 10ml RIGHT EYE SCH (08:30)
[2017-10-28] MEDS: GUAIFENESIN/D-METHORPHAN 600mg/30mg TABLET PO SCH (08:30)
[2017-10-28] MEDS: ASPIRIN 81 MG CHEWABLE TABLET PO SCH (08:30)
[2017-10-28] MEDS: LOSARTAN 50 MG TABLET PO SCH (08:30)
[2017-10-28] MEDS: ATORVASTATIN 10 MG TABLET PO SCH (08:30)
[2017-10-28] MEDS: POLYETHYL GLYCOL 3350 17gm PACKET PO SCH (08:30)
[2017-10-28] MEDS: AMLODIPINE 2.5 MG TABLET PO SCH (08:30)
[2017-10-28] MEDS: ChlorproMAZINE INJ 25 MG in NS 50 ML IV PRN ×2 (08:31→12:38)
[2017-10-28 09:01] VITALS: PULSE 88
--- NOTE | 2017-10-28 11:57 | Discharge Summary ---
Discharge Information Date of admission: 10/25/17 05:19 Anticipated date of discharge: 10/28/17 Attending Physician: Star Finnegan MD Primary care physician: Reji Guillory DO - Discharge Diagnosis (1) UTI (urinary tract infection) Status: Acute (2) Influenza A Status: Acute Sepsis syndrome (SIRS: Temp 101, RR 24, Hypoxia) - source urine/Influenza Influenza type A UTI - E. coli Hypoxia - resolved Anorexia secondary to acute illness Acute weakness Hiccups Hypokalemia (Not POA) - resolved Type II DM HTN HDL Seasonal allergies GERD OA Hx Colon and bladder CA - Procedures Procedures: Port-a-cath accessed and de-accessed - Laboratory Labs: 10/28/17 04:12 10/28/17 04:12 - Radiology Radiology: CXR on 10/25/17: No acute findings. History of Present Illness HPI: This is a 82 y/o male with a previous history of colon and bladder cancer with a urostomy and colostomy. The patient has a history of recurrent UTI. The patient has been experiencing resp symptoms for the past week; also with a cough. He has had low grade fevers with chills and sweats. Tonight the patient 's weakness worsened and he was brought to the ED for evaluation. The patient had a 101 temperature. CXR without obvious infiltrate. mild hypoxia. At this time he is to be admitted for further management of his underlying infectious process. No headaches, no sore throat, mild congestion, no neck pain, no chest pain. cough ? productive. no abdomen pain, decreased po intake past 2 days. no emesis. Output from ostomy no change, no blood. no focal motor weakness. Patient is very [place] and as such information obtained from who is a very reliable source. Objective Vital signs: Temperature 98.4 F 10/28/17 07:00 Pulse Rate 88 10/28/17 08:00 Respiratory Rate 18 10/28/17 07:00 Blood Pressure 127/69 10/28/17 07:00 Pulse Oximetry 92 10/28/17 07:00 Rhythm: Normal Sinus Rhythm Height/Weight/BMI: Height 1.83 m Weight 85.7 kg Body Mass Index 26.0 - Constitutional Present: no acute distress, well nourished, well developed - Routine HEENT Exam Head: Present: normocephalic Eye: Absent: conjunctival icterus, scleral injection ENT: Present: mucous membranes moist, oropharynx clear - Routine Respiratory Exam Present: CTA bilaterally - Routine Cardiovascular Exam Present: RRR, S1, S2, murmur (4/6 systolic) - Routine Abdominal Exam Present: soft, normoactive bowel sounds, non distended, non tender - Routine Exam Comments: Urostomy - Routine Extremities Exam Present: no edema, pulses intact - Routine Musculoskeletal Exam Musculoskeletal: Present: no clubbing or cyanosis - Routine Skin Exam Present: intact, dry, warm - Routine Neurological Exam Present: alert, oriented X3 - Routine Psychiatric Exam Present: normal affect, normal thought process, cooperative Hospital Course This is a general summary of the patient's hospital course. For more details refer to the complete medical record. Hospital course: Mr. Gallegos was admitted on 10/25/17 with influenza type A and UTI. He was started on Rocephin and azithromycin to cover both pulmonary and urinary sources. IVF were started, and initially his antihypertensives were held to minimize the chance for hypotension. Supportive treatment was initiated for hypoxia, including oxygen, acapella, and mucinex. Tamiflu was offered but patient and family declined. Azithromycin was discontinued on hospital day #2, when urine culture grew out E. coli and respiratory status showed improvement. He was no longer needing supplemental oxygen; initial CXR was negative. He developed hiccups and he has a history of hiccups -- Thorazine was added PRN. BP remained stable and was actually elevated on hospital day #2, and his antihypertensives were restarted. His HR was irregular and tachycardic on 10/26, and an EKG showed A-fib with a rate of 106. Metoprolol was started and he converted to sinus on 10/27/17. Metoprolol was not continued at time of discharge. Mild hypokalemia developed with IVF, which was corrected to 3.7 on day of discharge. Since his oral drive was diminished, home Metformin was not given through hospitalization, and fasting/PC blood sugars ranged from 115-186 with one reading of 281 which was on admission. He worked with PT/OT during his hospital stay, and both PT/OT recommended skilled intervention. He was able to be discharged to [facility] in stable condition on 10/28/17. Oral intake improved to 75-100% of meals and metformin will be restarted upon arrival to SNF but he will need ongoing BGM surveillance. For E. coli UTI, continue with Augmentin in the outpatient setting to complete a 10-day course. Plan on f/u with Dr. Guillory in 1 week. The patient will need ongoing discussions about end- of-life wishes, as he was considering DNR status here. Time spent with patient: discharge greater than 30 minutes Resuscitation Status: Full Code Discharge Plan - Discharge Disposition Discharge Date: 10/28/17 Disposition: 03 To SNU Not [facility] ([facility]) *Condition: Improved Reason For Visit (Visit label in EMR): Weakness, influenza, E. coli UTI - Discharge Medications *Discharge Medications: New Amoxicillin/Potassium Clav [Augmentin 875-125 Tablet] 1 each PO BIDWM #12 tab Acetaminophen 325 - 650 mg PO Q6H PRN #60 tab PRN Reason: Pain Continue Fluticasone Propionate 2 spray NS DAILY #0 Multivitamins (Multiple Vitamin) 1 tab PO DAILY #0 Aspirin 81 mg PO DAILY #0 Metformin HCl 500 mg PO HS #0 Atorvastatin Calcium [Lipitor] 10 mg PO DAILY #0 Polyethylene Glycol 3350 [Miralax] 17 gm PO DAILY #0 pwd Vit C/E/Zn/Coppr/Lutein/Zeaxan [Preservision Areds 2 Softgel] 1 cap DAILY #0 Losartan Potassium 25 mg PO DAILY Loratadine (Claritin) 10 mg PO DAILY PRN #0 PRN Reason: PRN ORDERS Amlodipine Besylate [Norvasc] 2.5 mg PO DAILY #0 Dorzolamide HCl 1 drop BOTH EYES BID #0 drop Omeprazole 20 mg BID - Discharge Packet/Instructions *Diet: Consistent carbohydrate 2000 kcal/day *Activity: PT/OT *Pain Management/Treatment: Tylenol as needed. *Wound Care: Monitor port-a-cath site for local infection. Additional Instructions: Urostomy care. *Expected Signs/Symptoms: Weakness, cough and occasional shortness of breath, fatigue from illness and hospital stay. *Notify Physician if: Shortness of breath or chest pain, passing out, confusion or altered mentation, fever, thrush, vomiting/diarrhea, or any new concerns. *During Business Hours Contact: Dr. Guillory at [facility]. *After Business Hours Contact: The on-call provider for Dr. Guillory. *Pending Lab/Results: No Pending Lab - Referrals/Follow Up *Referrals/Follow Up: Reji Guillory DO [Family Provider] - 1 Week - Patient Handouts Patient Handouts: Weakness (GEN), Catheter-associated Urinary Tract Infection ( ED) - Dismissal Complete Discharge Instructions are:: Complete Physician Narrative - Narrative Physician: Star Finnegan MD Attestation Narrative: Date: 10/28/17 Time: 1235 Have independently interviewed and examined patient prior to discharge. Case discussed with CM and my SEO CONSULTANT. Care plan developed with my supervision; agree with above. Doing okay today other than hiccups problematic. Breathing well. Appetite increasing. Strength improving. Lungs: decreased bilaterally. No distress on RA. CV: regular MSE: awake alert appropriate Plan: Will discharge to detention to help improve strength and abilities prior to return home. Medically stable for discharge. See orders for details.
--- NOTE | 2017-10-28 12:22 | Extended Care Facility Orders ---
Admission Orders Admit to:: Detention Allergies/Adverse Reactions: Allergies lisinopril Allergy (Unknown, Verified 10/25/17 05:54) AIRWAY OBSTRUCTION PT TOOK LISINOPRIL @ 2130 ON 12/17 AND WOKE UP THIS AM AT 0200 12/18 AND TONGUE WAS THROAT WAS SWOLLEN AND TIGHT...PT WAS AFRIAD HE COULDNT CATCH HIS BREATH...LISINOPRIL IS A NEW MED THAT HE STARTED TAKING 2010...HYDROCHLOROTHIAZIDE WAS DC'D ON 11/06 naproxen sodium Adverse Reaction (Severe, Uncoded 10/25/17 05:54) BLOODY STOOLS hydrocodone bit Adverse Reaction (Intermediate, Uncoded 10/25/17 05:54) NEUROLOGICAL CHANGES Admitting Diagnosis: Weakness, influenza, E. coli UTI Admitting Physician: Star Finnegan MD Attending Physician: Star Finnegan MD Code Status: Full Code Anticiapted Length of Stay: 30 days or less Rehab Potential: good Rehab Prognosis: good Diet: Consistent carbohydrate 2000 kcal per day May use Facility Protocol or Standing Orders: Yes May have flu vaccine: Yes Evaluations/Treatment: PT, OT, as needed Detention Certification: I certify that SNF services are required to be given on an Inpatient basis because of the patient's need for senior living care on a continuing basis for the condition(s) for which he received inpatient hospital services prior to his transfer to the SNF. SNF inpatient care is necessary for the following reasons Indication for Detention: Diabetic Assessment, Other (monitor respiratory status) - Additional Information In Event of Arrest: Start CPR,call 911,send patient to the ER Resident is Aware of Diagnosis: Yes Referrals: Reji Guillory DO [Family Provider] - 1 Week Additional Orders: Check blood sugars fasting and 2 hours after meals. Apply oxygen as needed to maintain saturations >90%.
[2017-10-28] MEDS ORDERED: MORPHINE SULFATE 2mg INJECTION IVP PRN (15:15)
== END 2017-10-28 14:45 | DRG 872 ==
LOC: ED 03:04 → MED 05:19
PROVIDERS: ADMIT Emergency Medicine; ATTEND Hospitalist